=== PATIENT | male | born 1985 | race Hispanic/Latino ===

== ENCOUNTER → 2019-10-23 | Day surgery (SDC) | payer SELFPAY, OTHER ==
[~2019-10-23] MED LIST: GLYBURIDE5 MG PO; INSULIN REGULAR, HUMAN 100 UNIT/1 ML 3ML VIAL ONE; METFORMIN HCL500 MG PO; NOVOLIN N100 UNIT/1 SC; OR PHACO EYE KIT ONE; PREOP PHACO EYE KIT ONE
[2019-10-23 12:20] VITALS: BP 99/56
== END | disposition home or self-care (01) ==
LOC: OR 08:10
PROVIDERS: ATTEND Ophthalmology
DX: H25.11 Age-related nuclear cataract, right eye (principal); E11.9 Type 2 diabetes mellitus without complications; Z01.812 Encounter for preprocedural laboratory examination; Z11.59 Encounter for screening for other viral diseases; Z79.84 Long term (current) use of oral hypoglycemic drugs; Z79.4 Long term (current) use of insulin
CPT/HCPCS: 36415; 66984; 82948; U0002; V2632; J1817